=== PATIENT | female | born 1945 | race Caucasian/White ===

== ENCOUNTER 2017-01-08 10:44 | Emergency (ER) | payer OTHER ==
[~2017-01-08] VITALS: Ht 167.6 cm; Wt 74.8 kg
--- NOTE | 2017-01-08 11:21 | ED GENERAL ADULT ---
History of Present Illness General Chief Complaint: Dizziness Stated Complaint: DIZZINESS Source: patient Exam Limitations: no limitations Vital Signs & Intake/Output Vital Signs & Intake/Output Vital Signs Date Time Temp Pulse Resp B/P Pulse O2 O2 Flow FiO2 Ox Delivery Rate 01/08 1601 98.2 64 18 136/83 99 Room Air 01/08 1533 55 16 162/87 99 Room Air 01/08 1515 97.0 61 16 175/90 99 Room Air 01/08 1428 60 175/86 01/08 1353 60 175/86 01/08 1330 97.2 60 16 173/92 98 Room Air 01/08 1311 53 16 166/88 97 Room Air 01/08 1301 52 16 175/91 98 Room Air 01/08 1257 56 16 176/93 98 Room Air 01/08 1253 98 Room Air 01/08 1248 61 207/92 01/08 1153 190/92 01/08 1048 98.0 61 20 205/100 98 Room Air Allergies Coded Allergies: acetaminophen (From PERCOCET) (UPSET STOMACH 01/08/17) ibuprofen (UPSET STOMACH 01/08/17) oxycodone (From PERCOCET) (UPSET STOMACH 01/08/17) Reconcile Medications Levothyroxine Sodium 100 MCG TABLET 1 TAB PO DAILY AC THYROID (Reported) Lisinopril 2.5 MG TABLET 1 TAB PO DAILY HEART (Reported) Meclizine HCl 25 MG TABLET 1 TAB PO TIDPRN PRN VERTIGO Ondansetron (Zofran Odt) 4 MG TAB.RAPDIS 1 TAB SL TID PRN NAUSEA Pantoprazole Sodium 40 MG TABLET.DR 1 TAB PO DAILY GI (Reported) Simvastatin (Simvastatin*) 20 MG TABLET 1 TAB PO QPM CHOLESTEROL (Reported) Triage Note: PT TO ED C/O WEAKNESS, DIZZINESS AND VOMITING SINCE EARLY TUESDAY AM AROUND 0300. Triage Nurses Notes Reviewed? yes Onset: Gradual Duration: day(s): (3) Timing: remote history Injury Environment: home Severity: moderate Severity Numbers: 8 Modifying Factors: Improves With: immobilization. Worsens With: movement. Associated Symptoms: N/V/D HPI: Patient is a 71-year-old female with history of hypothyroid, hypertension, hyperlipidemia presenting to the emergency department complaining of dizziness, nausea and vomiting that started approximately 3 days ago. She woke up one morning 2 days ago with dizziness and then the nausea and vomiting started. Symptoms seemed to be worse with positional changes. She has to get up very slowly in order to avoid vomiting. She has not been able to drink over the past 3 days. Unable to take her medications as well. She also reports that she is sensitive to light and with the dizziness she gets some blurred vision. She feels like the room is spinning when she standing. The reports that the other day when she was ambulating she fell because she was dizzy with walking. Denies hitting her head. No loss of consciousness. She is unsure humming times that she has vomited each day but reports that it was "a few". No hematemesis. Just reports one episode of diarrhea with onset of symptoms, has not moved her bowels since that one episode of diarrhea 3 days ago. Denies any urinary frequency or urgency or dysuria. Denies noting if the urine is darker in color than usual. No sick contacts. She did recently travel to [place] and came home the day before symptoms started. Denies any tick bites or rashes. She denies eating at any restaurants she typically does not eat. She had leftovers the day before symptoms started by her also ate the leftovers and he is doing well. Denies any fevers with this. No headaches. Denies any chest pain palpitations or shortness of breath. (ALL DEMARCO) Past History Travel History Traveled to [place] past 21 day No Medical History Any Pertinent Medical History? see below for history Cardiovascular: hypertension, hyperlipidemia Gastrointestinal: GERD Endocrine: hypothyroidism Surgical History Surgical History: non-contributory Psychosocial History What is your primary language Sinhala Tobacco Use: Quit >30 days ago ETOH Use: denies use Illicit Drug Use: denies illicit drug use Family History Hx Contributory? No (ALL DEMARCO) Review of Systems Review of Systems Constitutional: Reports: malaise. Comments Review of systems: See HPI, All other systems negative. Constitutional, no weight loss HEENT: No visual changes no sore throat Cardiovascular: No chest pain ,palpitation , orthopnea or ankle swelling Skin, no jaundice no rashes Respiratory: No dyspnea cough sputum or hemoptysis GI: Positive nausea, vomiting, diarrhea : No dysuria No hematuria Muscle skeletal: no back pain, no neck pain, Neurologic: No numbness no confusion, no headache Psych: No stress anxiety or depression,. Heme/endocrine: No bruising no bleeding no polyuria or polydipsia Immunology: No splenectomy or history of AIDS (ALL DEMARCO) Physical Exam Physical Exam General Appearance: well developed/nourished, no apparent distress, alert, awake , comfortable Comments: Well-developed well-nourished person in no acute distress HEENT:extraocular motion intact, horizontal nystagmus present bilaterally. Pupils equally round and reactive to light and accommodation. Nose is atraumatic. External auditory canal and Tympanic membranes minimally erythematous bilaterally with some fluid behind the TMs. External canal is clear bilaterally. Pharynx normal. No swelling or edema. Very dry oral mucosa and lips. Neck: Supple, no lymphadenopathy, normal range of motion without pain or tenderness. Negative meningeal signs. Back: Nontender Cardiovascular: Regular rate and rhythms no murmurs rubs or gallops, normal JVP Respiratory: Chest nontender. No respiratory distress.breath sounds clear to auscultation bilaterally Abdomen: Soft, mildly tender to palpation in lower quadrants bilaterally, no rebound or guarding, nondistended, no appreciable organomegaly. Normal bowel sounds. No ascites Extremity: No edema, no calf tenderness to palpation, normal and equal pulses. Muscular strength is 5 out of 5 in upper and lower extremities bilaterally. Make Ready Worker strength is equal and symmetric bilaterally. Neuro: Alert oriented x3, motor sensory normal, cranial nerves II through XII grossly intact. Patellar reflexes are 2+ bilaterally. Cerebellar testing is unremarkable while seated on the stretcher. Skin: No appreciable rash on exposed skin, skin is warm and dry. Psych: Mood and affect is normal, memory and judgment is normal. Core Measures ACS in differential dx? Yes CVA/TIA Diagnosis: No Severe Sepsis Present: No Septic Shock Present: No (ALL DEMARCO) Progress Differential Diagnoses I considered the following diagnoses in my evaluation of the patient: Uncontrolled hypertension, vertigo, CVA, TIA, symptomatically hypertension, orthostatic hypotension, electrolyte abnormality, dehydration, acute kidney injury Plan of Care: Orders Procedure Date/time Status Add-on Test (ER Only) 01/08 1329 Active Add-on Test (ER Only) 01/08 1251 Active RAPID VIRAL INFLUENZA A 01/08 1244 Complete TSH REFLEX 01/08 1204 Complete DIRECT BILIRUBIN 01/08 1204 Complete MISTAKE 01/08 112 Active TROPONIN LEVEL 01/08 112 Complete COMPREHENSIVE METABOLIC PANEL 01/09 1120 Complete CBC WITHOUT DIFFERENTIAL 01/09 1120 Complete B-TYPE NATRIURETIC PEP (BNP) 01/09 1120 Complete EKG 01/09 1120 Active Laboratory Tests 01/08/17 1204: Anion Gap 11, Estimated GFR > 60, BUN/Creatinine Ratio 24.3, Glucose 122 H, Calcium 10.1, Total Bilirubin 1.6 H, Direct Bilirubin 0.3, AST 31, ALT 36, Alkaline Phosphatase 90, Troponin I < 0.01, Uuh-G-Ecbwelapvou Pept 368 H, Total Protein 8.0, Albumin 4.5, Globulin 3.5, Albumin/Globulin Ratio 1.3, TSH &T3 & Free T4 Intrp 0.583, CBC w Diff NO MAN DIFF REQ, RBC 5.27, MCV 89.1, MCH 29.5, RDW 12.8, MPV 7.4, Gran % 83.5 H, Lymphocytes % 10.6 L, Monocytes % 4.8, Eosinophils % 0.6, Basophils % 0.5, Absolute Granulocytes 7.8 H, Absolute Lymphocytes 1.0 L, Absolute Monocytes 0.4, Absolute Eosinophils 0.1, Absolute Basophils 0, PUBS MCHC 33.1 Microbiology 01/08 1318 NASOPHARYN: Influenza Virus A & B Rapid Smear - COMP Diagnostic Imaging: Viewed by Me: CT Scan. Discussed w/RAD: CT Scan. Radiology Impression: PATIENT: CHIVO BETANCOURT PRESENT AGE: 71 PATIENT ACCOUNT NO: [id number] : 47 LOCATION: [facility] ORDERING PHYSICIAN: ALL BROOKS SERVICE DATE: 01/08/17 EXAM TYPE: CAT - CT HEAD WO IV CONTRAST EXAMINATION: CT HEAD WITHOUT CONTRAST CLINICAL INFORMATION: Dizziness. Hypotensive urgency. COMPARISON: None TECHNIQUE: Contiguous axial imaging was performed from the skull base to vertex without intravenous administration of contrast. DLP: 600.71 mGy-cm FINDINGS: There is no evidence of acute intracranial hemorrhage or territorial infarction. No abnormal mass effect or midline shift is seen. [place] to white matter differentiation is well preserved. No extra-axial fluid collections are identified. The ventricles and sulci are mildly enlarged, consistent with mild involutional changes. There is periventricular deep white matter low-attenuation seen, consistent with ischemic small vessel disease. Atherosclerotic calcifications of the vertebrobasilar arteries and the carotid siphons are noted. The osseous structures and soft tissues are normal. The mastoid air cells and visualized portions of the paranasal sinuses are well aerated. IMPRESSION: 1. No acute intracranial pathology. 2. Changes of ischemic small vessel disease in the periventricular deep white matter. CXR Impression: PATIENT: CHIVO BETANCOURT PRESENT AGE: 71 PATIENT ACCOUNT NO: [id number] : 47 LOCATION: [facility] ORDERING PHYSICIAN: ALL BROOKS SERVICE DATE: 01/08/17 EXAM TYPE: RAD - XRY- PORTABLE CHEST XRAY EXAMINATION: XR PORTABLE CHEST CLINICAL INFORMATION: Hypertension urgency. COMPARISON: None TECHNIQUE: Portable AP view of the chest was obtained. FINDINGS: No significant abnormality is noted involving the heart, lungs, mediastinum, bony thorax or soft tissues. IMPRESSION: Unremarkable chest examination. Initial ED EKG: SINUS RHYTHM 60 BPM, LEFT VENTRICULAR HYPERTROPHY Comments: 01/08/2017 1:49:30 PM patient able to tolerate meclizine without vomiting. Patient reports that she still mildly nauseous after the Zofran but does not want to take anything at this time. She reports that she is resting. Feeling slightly improved after fluids. She is informed of all lab work results and CT scan results. Once patient is feeling better we will by mouth challenge her and ambulate her to see how she feels. 01/08/2017 4:09:59 PM patient feeling much better after IV hydration, Reglan, scopolamine patch, Zofran. He'll set up at bedside without becoming dizzy. Requesting something to eat. Patient given tessa mary and crackers. 01/08/2017 5:29:00 PM patient able to ambulate to the bathroom, steady gait with . No vomiting after eating crackers and tessa mary. Feeling much improved. Patient will be discharged home with meclizine and Zofran. Patient nontoxic. She'll return for any worsening symptoms or concerns. (MARIA DEL CARMEN BROOKS,ALL) Departure Departure Time of Disposition: 1717 Disposition: HOME OR SELF CARE Condition: Stable Clinical Impression Primary Impression: Vertigo Secondary Impressions: Hypertension Qualifiers: Hypertension type: essential hypertension Qualified Code: I10 - Essential (primary) hypertension Referrals: ANDREW BERUMEN,TIFFANIE Astudillo (PCP/Family) Additional Instructions: Follow-up with your primary care physician you were also given ear nose and throat follow-up with regarding vertigo. Increase fluid intake. Take meclizine as prescribed to help with vertigo like symptoms. Take Zofran as prescribed and nausea. Return for worsening symptoms or concerns. Departure Forms: Customer Survey General Discharge Information Prescriptions: Current Visit Scripts Ondansetron (Zofran Odt) 1 TAB SL TID PRN NAUSEA #15 TAB Meclizine HCl 1 TAB PO TIDPRN PRN VERTIGO #30 TAB (ALL DEMARCO) PA/WOOD MILLING MACHINE TENDER Co-Sign Statement Statement: ED Attending supervision documentation- [X] I saw and evaluated the patient. I have also reviewed all the pertinent lab results and diagnostic results. I agree with the findings and the plan of care as documented in the PA's/WOOD MILLING MACHINE TENDER's documentation. [X] I have reviewed the ED Record and agree with the PA's/WOOD MILLING MACHINE TENDER's documentation. [] Additions or exceptions (if any) to the PAs/WOOD MILLING MACHINE TENDER's note and plan are summarized below: [] (OMAR BERUMEN,JANNIE Butler) Critical Care Note Critical Care Note Critical Care Time: non-applicable (ALL DEMARCO)
[2017-01-08] MEDS ORDERED: PANTOPRAZOLE SO40 M1 PO (11:52)
[2017-01-08] MEDS ORDERED: LISINOPRIL2.5 M1 PO (11:52)
[2017-01-08] MEDS ORDERED: LEVOTHYROXINE100 MC1 PO (11:52)
[2017-01-08] MEDS ORDERED: SIMVASTATIN20 M2 PO (11:52)
--- NOTE | 2017-01-08 11:56 | CT SCAN REPORT ---
EXAMINATION: CT HEAD WITHOUT CONTRAST CLINICAL INFORMATION: Dizziness. Hypotensive urgency. COMPARISON: None TECHNIQUE: Contiguous axial imaging was performed from the skull base to vertex without intravenous administration of contrast. DLP: 600.71 mGy-cm FINDINGS: There is no evidence of acute intracranial hemorrhage or territorial infarction. No abnormal mass effect or midline shift is seen. [place]ays to white matter differentiation is well preserved. No extra-axial fluid collections are identified. The ventricles and sulci are mildly enlarged, consistent with mild involutional changes. There is periventricular deep white matter low-attenuation seen, consistent with ischemic small vessel disease. Atherosclerotic calcifications of the vertebrobasilar arteries and the carotid siphons are noted. The osseous structures and soft tissues are normal. The mastoid air cells and visualized portions of the paranasal sinuses are well aerated. IMPRESSION: 1. No acute intracranial pathology. 2. Changes of ischemic small vessel disease in the periventricular deep white matter.
[2017-01-08 12:15] LABS: ABSOLUTE BASOPHIL COUNT 0 /CUMM (0.0-0.2); ABSOLUTE EOSINOPHIL COUNT 0.1 /CUMM (0.0-0.7); ABSOLUTE GRANULOCYTE CT 7.8 /CUMM (1.4-6.5); ABSOLUTE MONOCYTE COUNT 0.4 /CUMM (0.10-0.60); BASOPHIL % 0.5 % (0.0-2.0); EOSINOPHIL % 0.6 % (0-5); MEAN CORPUSCULAR HGB 29.5 PG (27.0-31.0); MEAN CORPUSCULAR HGB CONC 33.1 G/DL (33.0-37.0); MEAN CORPUSCULAR VOLUME 89.1 FL (81.0-99.0); MEAN PLATELET VOLUME 7.4 FL (7.4-10.4); PLATELET COUNT 342 /CUMM (130-400); RBC DISTRIBUTION WIDTH 12.8 % (11.5-14.5); RED BLOOD CELL CT 5.27 /CUMM (4.20-5.40); WHITE BLOOD CELL COUNT 9.4 /CUMM (4.8-10.8)
[2017-01-08 12:38] LABS: GRANULOCYTE % 83.5 % (42.2-75.2)
--- NOTE | 2017-01-08 12:47 | RADIOLOGY REPORT ---
EXAMINATION: XR PORTABLE CHEST CLINICAL INFORMATION: Hypertension urgency. COMPARISON: None TECHNIQUE: Portable AP view of the chest was obtained. FINDINGS: No significant abnormality is noted involving the heart, lungs, mediastinum, bony thorax or soft tissues. IMPRESSION: Unremarkable chest examination.
[2017-01-08] MEDS ORDERED: MECLIZINE HCL25 MG PO (17:21)
[2017-01-08] MEDS ORDERED: ZOFRAN ODT4 M1 SL (17:21)
[2017-01-08 17:28] VITALS: BP 160/84
== END 2017-01-08 17:43 ==
LOC: ERH 10:44
PROVIDERS: Physician Assistant
DX: R42 Dizziness and giddiness (principal); I10 Essential (primary) hypertension
CPT/HCPCS: 87804; 87804-59; 93005; 93010; 96361; 96374; 96375; J2405; J2765; J7040